=== PATIENT | female | born 1960 ===

== ENCOUNTER 2024-03-02 14:43 | Outpatient (AMB) | payer OTHER, BC, SELFPAY ==
[2024-03-02 14:47] VITALS: BP 132/70; PULSE 84; O2SAT 96; BMI 34.2
--- NOTE | 2024-03-02 14:47 | A.OFFVIS_ITS ---
Vital Signs 03/02/24 14:47 Height 5 ft 7 in Weight 218 lb 4.122 oz BMI 34.2 BP 132/70 Blood Pressure Location Lt brachial Position Sitting Pulse 84 Pulse Source Pulse Oximeter Pulse Oximetry (%) 96 Oxygen Delivery Method Room Air Intake Visit Reasons: asthma Pm Technician Required: No Allergies No Known Allergies Allergy (Verified 03/02/24 14:50) HPI Comments Details: The patient is here for pulmonary evaluation. The patient is a 63 year woman presenting with worsening respiratory complaints. The patient states that she was in her usual state health until several months ago with the summer when she started developing chest tightness and cough. The patient is noted to have some wheezing. She has never been diagnosed with asthma or bronchospasms. She initially was evaluated and was given a short course of prednisone. She did improve but then her symptoms reoccurred. She does have a rescue inhaler now. She did have to go back and receive a couple more courses of prednisone. Now her symptoms are getting better. She did undergo pulmonary function studies at [facility] in January which I personally reviewed. It appears that she does have reversible obstruction Consistent with asthma although still uncontrolled with a low FEV1 to FVC. She does have significant small airways disease which is typical of asthma. On further questioning she does have a family history asthma. She has never been allergic to any significant things. She does have an allergy appointment scheduled soon allergy immunology. Therefore, will hold off on doing any blood work or any allergy testing at this time. The patient does have some wheezing on examination and therefore we have to maximize her respiratory therapy in order for her to have proper allergy testing. She also did have an imaging study. We did review a chest x-ray that she had over the summer as well. It demonstrated hyperinflation of the lungs with retro cardiac space consistent with air trapping asthma as well. Therefore, go ahead and maximize respiratory therapy and start her on Singulair. And she will follow-up with Allergy. The patient follow-up with us until 3 months. If patient has any worsening symptoms she will call for an earlier assessment. [facility] Medical History (Updated 03/02/24 @ 22:56 by Blair Dixon MD) Chronic cough Allergies Asthma Social History (Updated 03/02/24 @ 14:56 by JOSE D Hanna) Patient Tobacco Use Status: Former Tobacco user Tobacco use type: Cigarette Years Smoked: 10 Years Quit 1990 Review of Systems Const Denies fever(s) ENT Reports nasal congestion Card Denies chest pain Resp Reports cough and Reports wheezing GI Reports no additional complaints Musc Reports no additional complaints Skin/Breast Denies rash Neuro Reports no additional complaints Aller/Immun Reports wheezing Physical Exam Vital Signs: Last Vital Signs Pulse 84 03/02/24 14:47 BP 132/70 03/02/24 14:47 Pulse Ox 96 03/02/24 14:47 Oxygen Delivery Method Room Air 03/02/24 14:47 BMI result Body Mass Index 34.2 Const General: comfortable HEENT Head: Yes normocephalic Neck Neck: Yes supple Chest Chest palpation & inspection: normal inspection of the chest Resp Effort & Inspection: normal respiratory effort and prolonged expiratory phase Auscultation: wheezes Cardio Heart sounds: S1 normal heart sound present and S2 normal heart sound present GI Palpation (GI): Soft to palpation Skin General skin exam: no rashes or lesions noted Extrem General: Yes no clubbing, cyanosis or edema Assessment & Plan Assessment & Plan (1) Asthma: Code(s): J45.909 - Unspecified asthma, uncomplicated Category: Medical Qualifiers: Asthma severity: moderate Asthma persistence: persistent Asthma complication type: uncomplicated Qualified Code(s): J45.40 - Moderate persistent asthma, uncomplicated (2) Allergies: Code(s): T78.40XA - Allergy, unspecified, initial encounter Category: Medical Qualifiers: Encounter type: initial encounter Qualified Code(s): T78.40XA - Allergy, unspecified, initial encounter (3) Chronic cough: Code(s): R05.3 - Chronic cough Category: Medical Plan start Symbicort BID MAITE as needed start Singulair continue zyrtec as needed Allergy eval pending F/U 2-3 months Medications: New budesonide-formoterol 80-4.5 mcg/actuation 2 puffs inhalation BID 10.2 grams 11RF 30 days montelukast (Singulair) 10 mg PO BEDTIME 30 tabs 11RF 30 days J45.909 - Unspecified asthma, uncomplicated Coding Level of Care Code New Pt Level 4 (06905) Diagnoses Moderate persistent asthma without complication J45.40 Asthma severity: moderate Asthma persistence: persistent Asthma complication type: uncomplicated Allergy, initial encounter T78.40XA Encounter type: initial encounter Chronic cough R05.3 Time Spent (min) 35
== END 2024-03-02 15:30 | disposition home or self-care (01) ==
PROVIDERS: PCP Internal Medicine; Referring Provider Internal Medicine; Visit Provider Hospitalist
DX: J45.40 Moderate persistent asthma, uncomplicated (principal); T78.40XA Allergy, unspecified, initial encounter; R05.3 Chronic cough
CPT/HCPCS: 99204

== ENCOUNTER → 2024-03-02 14:43 | Outpatient (BNVA) | payer OTHER, SELFPAY | PROVIDERS: Visit Provider Hospitalist ==

== ENCOUNTER 2024-05-06 13:25 | Outpatient (AMB) | payer OTHER, BC, SELFPAY ==
[2024-05-06 13:26] VITALS: BP 140/72; PULSE 74; O2SAT 99; BMI 34.2
--- NOTE | 2024-05-06 13:26 | MHC.OFFVIS ---
Vital Signs 05/06/24 13:26 Height 5 ft 7 in Weight 218 lb 4.122 oz BMI 34.2 BP 140/72 H Blood Pressure Location Rt brachial Position Sitting Pulse 74 Pulse Source Pulse Oximeter Pulse Oximetry (%) 99 Oxygen Delivery Method Room Air Intake Visit Reasons: Asthma Allergies No Known Allergies Allergy (Verified 05/06/24 13:28) HPI Comments Details: The patient is a 64 year woman presenting with worsening respiratory complaints. The patient states that she was in her usual state health until several months ago with the summer when she started developing chest tightness and cough. The patient is noted to have some wheezing. She has never been diagnosed with asthma or bronchospasms. She initially was evaluated and was given a short course of prednisone. She did improve but then her symptoms reoccurred. She does have a rescue inhaler now. She did have to go back and receive a couple more courses of prednisone. Now her symptoms are getting better. She did undergo pulmonary function studies at [facility] in January which I personally reviewed. It appears that she does have reversible obstruction Consistent with asthma although still uncontrolled with a low FEV1 to FVC. She does have significant small airways disease which is typical of asthma. On further questioning she does have a family history asthma. She has never been allergic to any significant things. She does have an allergy appointment scheduled soon allergy immunology. Therefore, will hold off on doing any blood work or any allergy testing at this time. The patient does have some wheezing on examination and therefore we have to maximize her respiratory therapy in order for her to have proper allergy testing. She also did have an imaging study. We did review a chest x-ray that she had over the summer as well. It demonstrated hyperinflation of the lungs with retro cardiac space consistent with air trapping asthma as well. Therefore, go ahead and maximize respiratory therapy and start her on Singulair. And she will follow-up with Allergy. The patient follow-up with us until 3 months. If patient has any worsening symptoms she will call for an earlier assessment. 05/06/2024 the patient is here for a pulmonary follow-up visit. The patient overall has been feeling better. She is using the Symbicort twice a day. In addition to that she did start the Singulair. She continues with Zyrtec. She has not had her allergy testing as of yet. We did talk about potential triggers. She is having reflux issues we talked about how to mitigate those issues to minimize asthma triggers. No recent imaging to review. Once the patient has a allergy testing May she will send to us. For now she will continue with Symbicort continue with Singulair and Zyrtec and she can use her rescue inhaler as needed. If she has any worsening symptoms she will call otherwise will follow-up in 6 months. [facility] Medical History (Updated 03/02/24 @ 22:56 by Blair Dixon MD) Chronic cough Allergies Asthma Social History Patient Tobacco Use Status: Former Tobacco user Tobacco use type: Cigarette Years Smoked: 10 Years Quit 1990 Review of Systems Const Denies fever(s) ENT Reports nasal congestion Card Denies chest pain Resp Reports cough and Denies wheezing GI Reports no additional complaints Musc Reports no additional complaints Skin/Breast Denies rash Neuro Reports no additional complaints Aller/Immun Denies wheezing Physical Exam Vital Signs: Last Vital Signs Pulse 74 05/06/24 13:26 BP 140/72 H 05/06/24 13:26 Pulse Ox 99 05/06/24 13:26 Oxygen Delivery Method Room Air 05/06/24 13:26 BMI result Body Mass Index 34.2 Const General: comfortable HEENT Head: Yes normocephalic Neck Neck: Yes supple Chest Chest palpation & inspection: normal inspection of the chest Resp Effort & Inspection: normal respiratory effort Auscultation: no wheezes and diminished lung sounds Cardio Heart sounds: S1 normal heart sound present and S2 normal heart sound present GI Palpation (GI): Soft to palpation Skin General skin exam: no rashes or lesions noted Extrem General: Yes no clubbing, cyanosis or edema Assessment & Plan Assessment & Plan (1) Asthma: Code(s): J45.909 - Unspecified asthma, uncomplicated Category: Medical Qualifiers: Asthma complication type: uncomplicated Asthma persistence: persistent Asthma severity: moderate Qualified Code(s): J45.40 - Moderate persistent asthma, uncomplicated (2) Allergies: Code(s): T78.40XA - Allergy, unspecified, initial encounter Category: Medical Qualifiers: Encounter type: initial encounter Qualified Code(s): T78.40XA - Allergy, unspecified, initial encounter (3) Chronic cough: Code(s): R05.3 - Chronic cough Category: Medical Plan Symbicort BID MAITE as needed Singulair continue zyrtec as needed Allergy eval pending F/U 6-8 months Coding Level of Care Code Est Pt Level 4 (25855) Diagnoses Moderate persistent asthma without complication J45.40 Asthma complication type: uncomplicated Asthma persistence: persistent Asthma severity: moderate Allergy, initial encounter T78.40XA Encounter type: initial encounter Chronic cough R05.3 Time Spent (min) 16
== END 2024-05-06 13:46 | disposition home or self-care (01) ==
PROVIDERS: PCP Internal Medicine; Visit Provider Hospitalist
DX: J45.40 Moderate persistent asthma, uncomplicated (principal); T78.40XA Allergy, unspecified, initial encounter; R05.3 Chronic cough
CPT/HCPCS: 99214

== ENCOUNTER 2024-12-02 08:19 | Outpatient (AMB) | payer OTHER, BC, SELFPAY ==
[2024-12-02 08:21] VITALS: BP 126/64; PULSE 69; O2SAT 98; BMI 33.0
--- NOTE | 2024-12-02 08:21 | MHC.OFFVIS ---
Vital Signs 12/02/24 08:21 Height 5 ft 7 in Weight 210 lb 8.663 oz BMI 33.0 BP 126/64 Blood Pressure Location Lt brachial Position Sitting Pulse 69 Pulse Source Pulse Oximeter Pulse Oximetry (%) 98 Oxygen Delivery Method Room Air Intake Visit Reasons: Asthma Production Planning Manager Required: No Accompanied by: Self / Same As Patient Allergies No Known Allergies Allergy (Verified 12/02/24 08:24) HPI Comments Details: The patient is a 64 year woman presenting with worsening respiratory complaints. The patient states that she was in her usual state health until several months ago with the summer when she started developing chest tightness and cough. The patient is noted to have some wheezing. She has never been diagnosed with asthma or bronchospasms. She initially was evaluated and was given a short course of prednisone. She did improve but then her symptoms reoccurred. She does have a rescue inhaler now. She did have to go back and receive a couple more courses of prednisone. Now her symptoms are getting better. She did undergo pulmonary function studies at [facility] in January which I personally reviewed. It appears that she does have reversible obstruction Consistent with asthma although still uncontrolled with a low FEV1 to FVC. She does have significant small airways disease which is typical of asthma. On further questioning she does have a family history asthma. She has never been allergic to any significant things. She does have an allergy appointment scheduled soon allergy immunology. Therefore, will hold off on doing any blood work or any allergy testing at this time. The patient does have some wheezing on examination and therefore we have to maximize her respiratory therapy in order for her to have proper allergy testing. She also did have an imaging study. We did review a chest x-ray that she had over the summer as well. It demonstrated hyperinflation of the lungs with retro cardiac space consistent with air trapping asthma as well. Therefore, go ahead and maximize respiratory therapy and start her on Singulair. And she will follow-up with Allergy. The patient follow-up with us until 3 months. If patient has any worsening symptoms she will call for an earlier assessment. 05/06/2024 the patient is here for a pulmonary follow-up visit. The patient overall has been feeling better. She is using the Symbicort twice a day. In addition to that she did start the Singulair. She continues with [facility]. She has not had her allergy testing as of yet. We did talk about potential triggers. She is having reflux issues we talked about how to mitigate those issues to minimize asthma triggers. No recent imaging to review. Once the patient has a allergy testing May she will send to us. For now she will continue with Symbicort continue with Singulair and Zyrtec and she can use her rescue inhaler as needed. If she has any worsening symptoms she will call otherwise will follow-up in 6 months. 12/02/2024 the patient is here for pulmonary follow-up visit. Overall she is doing well. She continues uses Symbicort with good effect. She also has the Singulair and the Zyrtec that she takes regularly. She did follow-up with Allergy she does have allergies to animals including dogs cats and horses. She is always around these animals as well. Sometimes she is able to cut down on the Symbicort which is perfectly fine. She otherwise is doing well without any recent exacerbations. He did develop a rash and she was seen by dermatology. She is not sure what the rashes she may have to go back and get a re-evaluated. No recent imaging studies to review. Will talk about additional testing including x-rays and pulmonary function studies during the next visit. Will follow-up in a year's time if she has any issues prior to this she will call for an earlier assessment. [facility] Medical History (Updated 03/02/24 @ 22:56 by Blair Dixon MD) Chronic cough Allergies Asthma Social History Patient Tobacco Use Status: Former Tobacco user Tobacco use type: Cigarette Years Smoked: 10 Years Quit 1990 Review of Systems Const Denies chills, Denies fatigue, Denies fever(s), Denies weight gain and Denies weight loss ENT Denies dizziness and Reports nasal congestion Card Denies chest pain, Denies leg edema, Denies lightheadedness, Denies palpitations, Denies dyspnea on exertion, Denies orthopnea and Denies other Resp Reports cough, Denies dyspnea on exertion and Reports wheezing GI Denies hematochezia and Denies change in stool character Musc Denies abnormal gait, Denies muscle weakness, Denies numbness, Denies radiating pain into limb and Denies tingling Skin/Breast Denies rash Neuro Denies abnormal gait, Denies dizziness, Denies numbness and Denies tingling Endo Denies fatigue and Denies palpitations Aller/Immun Reports wheezing Physical Exam Vital Signs: Last Vital Signs Pulse 69 12/02/24 08:21 BP 126/64 12/02/24 08:21 Pulse Ox 98 12/02/24 08:21 Oxygen Delivery Method Room Air 12/02/24 08:21 BMI result Body Mass Index 33.0 Const General: comfortable HEENT Head: Yes normocephalic Neck Neck: Yes supple Chest Chest palpation & inspection: normal inspection of the chest Resp Effort & Inspection: normal respiratory effort Auscultation: wheezes and diminished lung sounds Cardio Heart sounds: S1 normal heart sound present and S2 normal heart sound present GI Palpation (GI): Soft to palpation Skin General skin exam: no rashes or lesions noted Extrem General: Yes no clubbing, cyanosis or edema Assessment & Plan Assessment & Plan (1) Asthma: Code(s): J45.909 - Unspecified asthma, uncomplicated Category: Medical Qualifiers: Asthma complication type: uncomplicated Asthma persistence: persistent Asthma severity: moderate Qualified Code(s): J45.40 - Moderate persistent asthma, uncomplicated (2) Allergies: Code(s): T78.40XA - Allergy, unspecified, initial encounter Category: Medical Qualifiers: Encounter type: initial encounter Qualified Code(s): T78.40XA - Allergy, unspecified, initial encounter (3) Chronic cough: Code(s): R05.3 - Chronic cough Category: Medical Plan Symbicort BID MAITE as needed Singulair continue zyrtec as needed F/U 12 months Orders: Orders XR chest 2V Today J45.40 - Moderate persistent asthma, uncomplicated Coding Level of Care Code Est Pt Level 4 (86755) Diagnoses Moderate persistent asthma without complication J45.40 Asthma complication type: uncomplicated Asthma persistence: persistent Asthma severity: moderate Allergy, initial encounter T78.40XA Encounter type: initial encounter Chronic cough R05.3 Time Spent (min) 16
--- OUTSIDE RECORDS SUMMARY | 2024-12-02 08:22 | XMS_ITS | Clinical Summary ---
Author Organization [facility] [address] Address [address] [place] [address] Phone Care Team Providers Care Branch Retail Executive Name Role Phone Zonia Patel MD Primary Care Provider [phone] Encounters Date Type Department Care Team Description 09/08/2024 Telephone Gastroenterology - [address] [address] Lakshmi Valencia MD Special Procedure R/S from Last 3 Months Surgical History Surgery Date Site/Laterality Comments CHOLECYSTECTOMY 1992 PROCEDURE: HISTORICAL CHOLECYSTECTOMY MULTIPLE TOOTH EXTRACTIONS PROCEDURE: HISTORICAL DENTAL EXTRACTION Medical History Medical History Date Comments Proteinuria 12/26/2005 DX:Proteinuria Type 2 diabetes mellitus wit h renal manifestations (CMS/HCC V24, CMS/HCC V28) 01/01/2018 DX:Type 2 diabetes mellitus with renal manifestations (HCC) Hyperlipidemia 01/01/2018 DX:Hyperlipidemi a Gastroesophageal reflux disease 06/12/2017 DX:Gastroesophageal reflux disease Breast cyst 11/03/2014 DX:Breast cyst Diabetes mellitus due to und erlying condition, uncontrolled, with stage 1 chronic kidney disease 01/31/2020 DX:Diabetes mellitus due to underlying condition, uncontrolled, with stage 1 chronic kidney disease DM (diabetes mellitus), type 1 with renal complications (CMS/HCC V24, CMS/HCC V28) 01/31/2020 DX:DM (diabetes mellitus), t ype 1 with renal complications ([facility]) Lightheaded 11/21/2021 DX:Lightheaded Back pain DX:Back pain Chronic headache DX:Chronic head ache Epigastric pain DX:Epigastric pa in Nausea DX:Nausea Class 1 obesity DX:Class 1 obesi ty Headache DX:Headache Vertigo DX:Vertigo Family History Medical History Relation Name Comments Breast cancer Aunt m ?60s maternal aunt Other: Other Father age 73 , [place] Breast cancer Father's side p aunt ? age aunt Heart attack Father's side p aunt ? age Other: macular degeneration Mother HTN, dementia Diabetes Paternal Grandfather Brain cancer Uncle 1 paternal Brain cancer Uncle 2 maternal Relation Name Status Comments Aunt m ?60s Father Father's side p aunt ? age Maternal Grandfather Maternal Grandmother Mother Alive Paternal Grandfather Paternal Grandmother Uncle 1 paternal Uncle 2 maternal Social History Tobacco Use Types Packs/Day Years Used Date Smoking Tobacco: Former Cigarettes Q uit: 06/23/1991 Smokeless Tobacco: Never Alcohol Use Standard Drinks/Week Comments Not Currently 0 (1 standard drink = 0.6 oz pur e alcohol) Comments Unknown Sex and Gender Information Value Date Recorded Sex Assigned at Not on file Legal Sex Female 3:51 AM EST Gender Identity Not on file Sexual Orientation Not on file Obstetrics History Last Filed Vital Signs Vital Sign Reading Time Taken Comments Blood Pressure 122/62 03/15/2022 9:59 AM EDT Cuf f Pulse 67 03/15/2022 9:59 AM EDT Temperature - - Respiratory Rate - - Oxygen Saturation - - Inhaled Oxygen Concentration - - Weight 89.4 kg (197 lb) 03/15/2022 9:59 AM EDT Height 170.2 cm (5' 7 ) 03/15/2022 9:59 AM EDT Body Mass Index 30.85 03/15/2022 9:59 AM EDT Plan of Treatment Upcoming Encounters Date Type Department Care Team (Late st Contact Info) Description 01/27/2025 7:30 AM EDT Appointment [facility] [address] [place] [id number] Lakshmi Valencia MD [address] [address] Health Maintenance Due Date Last Done Comments Diabetes: Annual GFR (Glomerular Filtration Rate) 1961 Diabetes: Annual Foot Exam 1971 Diabetes: Annual Retina Eye Exam 1971 Zoster Vaccines (1 of 2) 1980 Cervical Cancer Screening: Pap Smear 1982 Pneumococcal Vaccine: 50+ Years (2 of 2 - PCV) 12/31/2002 12/31/2001 Pneumococcal Vaccine: Pediatrics (0 to 5 Years) and At-Risk Patients (6 to 64 Years) (2 of 2 - PCV) 12/31/2002 12/31/2001 COVID-19 Vaccine (3 - Pfizer risk series) 09/02/2020 08/05/2020, 07/05/2020 RSV Immunization Adult Patients (1 - Risk 60-74 years 1-dose series) 2021 Breast Cancer Screening 01/26/2022 01/27/20, 01/14/2019, 10/23/2017, Additional history exists Cholesterol Screening (Lipid Panel) 06/01/2022 Colorectal Cancer Screening: Colonoscopy 06/01/2022 Depression Screening 06/01/2022 HIV Screening 06/01/2022 Hepatitis C Screening 06/01/2022 Social Influencers of Health Screening 06/01/2022 Diabetes: Annual Urine Albumin-Creatinine Ratio (uACR) 06/02/2022 Diabetes: Blood Sugar Control Test (HGBA1C) 06/02/2022 Hypertension/CHF/CAD Annual BMP Blood Test 06/02/2022 Influenza Vaccine (Season Ended) 2025 04/05/2021, 04/24/2017, 04/25/2016, Additional history exists DTaP,Tdap,and Td Vaccines (3 - Td or Tdap) 05/29/2027 05/29/2017, 03/10/2007 HIB Vaccines Aged Out No longer eligi ble based on patient's age to complete this topic HPV Vaccines Aged Out No longer eligi ble based on patient's age to complete this topic Hepatitis A Vaccines Aged Out No long er eligible based on patient's age to complete this topic Hepatitis B Vaccines Aged Out No long er eligible based on patient's age to complete this topic IPV Vaccines Aged Out No longer eligi ble based on patient's age to complete this topic MMR Vaccines Aged Out No longer eligi ble based on patient's age to complete this topic Meningococcal ACWY Vaccine Aged Out N o longer eligible based on patient's age to complete this topic Meningococcal B Vaccine Aged Out No l onger eligible based on patient's age to complete this topic RSV Immunization Patients Under 20 months Aged Out No longer eligible based on patient's age to complete this topic Varicella Vaccines Aged Out No longer eligible based on patient's age to complete this topic Procedures Procedure Name Priority Date/Time Associated Diagnosis Comments SCR MAMMO BI INCL CAD Routine 01/27/2020 7:44 AM EDT Encounter for screening mammogram for malignant neoplasm of breast from Last 3 Months or Most Recently Relevant to Health Maintenance Results * SCR MAMMO BI INCL CAD (01/27/2020 7:44 AM EDT) Anatomical Region Laterality Modality Radiographic Zuleyma ging 01/14/2019 7:47 AM EDT Narrative 01/27/2020 8:50 AM EDT This is a summary report. The complete report is available in the patient's medical record. If you cannot access the medical record, please contact the sending organization for a detailed fax or copy. BILATERAL 2D DIGITAL SCREENING MAMMOGRAM History: Routine screening. ??No current breast complaints. ??Family history of breast cancer in aunt Comparison: Multiple priors dating back to 10/12/2015 Technique: Bilateral full-field digital mammography was performed using standard CC and MLO projections CAD was used to evaluate this mammogram. Findings: Density: There are scattered areas of fibroglandular density-B RIGHT: No suspicious masses, groups of microcalcification or areas of architectural distortion identified. Stable typically benign parenchymal asymmetries LEFT: No suspicious masses, groups of microcalcifications or areas of architectural distortion identified. Stable typically benign parenchymal asymmetries IMPRESSION: : 1. ??No mammographic evidence of malignancy. BI-RADS Category 2 benign findings Recommendation: Routine annual screening mammography is recommended Procedure Note Neal Silva MD - 06/11/2022 This is a summary report. The complete report is available in thepatient's medical record. If you cannot access the medical record, pleasecontact the sending organization for a detailed fax or copy. BILATERAL 2D DIGITAL SCREENING MAMMOGRAM History: Routine screening. No current breast complaints. Family historyof breast cancer in aunt Comparison: Multiple priors dating back to 10/12/2015 Technique: Bilateral full-field digital mammography was performed usingstandard CC and MLO projections CAD was used to evaluate this mammogram. Findings: Density: There are scattered areas of fibroglandular density-B RIGHT: No suspicious masses, groups of microcalcification or areas ofarchitectural distortion identified. Stable typically benign parenchymalasymmetries LEFT: No suspicious masses, groups of microcalcifications or areas ofarchitectural distortion identified. Stable typically benign parenchymalasymmetries IMPRESSION: : 1. No mammographic evidence of malignancy. BI-RADS Category 2 benign findings Recommendation: Routine annual screening mammography is recommended Sarah CHAPA IMG XR PROCEDURES Final Result from Last 3 Months or Most Recently Relevant to Health Maintenance Insurance [facility] [address] [place] [address] [facility] Care Teams Branch Retail Executive Relationship Specialty Start Date End Date Zonia Patel MD [address] [place] [address] PCP - General Internal Medicine 07/29/24
== END 2024-12-02 08:52 | disposition home or self-care (01) ==
PROVIDERS: PCP Internal Medicine; Visit Provider Hospitalist
DX: J45.40 Moderate persistent asthma, uncomplicated (principal); T78.40XA Allergy, unspecified, initial encounter; R05.3 Chronic cough
CPT/HCPCS: 99214

== ENCOUNTER → 2024-12-02 08:19 | Outpatient (BNVA) | payer OTHER, BC, SELFPAY | PROVIDERS: PCP Internal Medicine; Visit Provider Hospitalist | DX: J45.909 Unspecified asthma, uncomplicated (principal) ==